=== PATIENT | male | born 1965 | race Caucasian/White ===

== ENCOUNTER 2017-01-12 18:20 | Emergency (ER) | payer BC ==
--- NOTE | ~2017-01-12 | CR58 ---
[facility] A Service of [facility] RADIOLOGY TEXT RESULTS PATIENT: ENRIQUE HUNTER LOCATION: [facility] : 69 UNIT #: [id number] AGE: [address]: Kimberly Vargas SEX: M ORDER DR: [id number] [facility] [address] [place], [place] [address] [id number] MR#: [id number] Acc #: [id number] NAME: ENRIQUE HUNTER. : 1965 SEX: M STUDY DATE/TIME: 01/12/2017 17:35 UNIT: [facility] ROOM: STUDY DESCRIPTION: CR Cervical Spine 2 or 3 Views Attending Physician: Kimberly Vargas Pa-C Ordering Physician: Kimberly Vargas Pa-C Primary Care Physician: No Primary Care Physician MEDICAL IMAGING REPORT This report is preliminary unless electronic signature is present EXAM Cervical spine 01/12/2017 HISTORY 51-year-old male with neck pain for 2 weeks. COMPARISON None. FINDINGS 5 views of the cervical spine demonstrate no acute fracture or subluxation. Vertebral body heights and alignment are normally maintained. Prevertebral soft tissues are normal. Atlantoaxial relationships normal. Cervicothoracic junction is unremarkable. Disc spaces are adequately maintained. Minimal multilevel anterior osteophyte formation. Minimal multilevel facet degeneration. IMPRESSION 1. No acute cervical spine injury. 2. Minimal multilevel degenerative changes. Dictated by... Ludwig Camejo M.D. THIS IS AN ELECTRONICALLY VERIFIED REPORT Ludwig Camejo M.D. at 01/13/2017 4:44 PM MARTHA/omi TD: 01/13/2017 00:07 JOB #: [id number] MEDICAL IMAGING REPORT Page 1 of 1 COPY
== END 2017-01-12 19:26 | disposition home or self-care (01) ==
LOC: CFTX 18:20
DX: M54.12 Radiculopathy, cervical region (principal); I10 Essential (primary) hypertension; Z90.49 Acquired absence of other specified parts of digestive tract
CPT/HCPCS: 72040; 99283